=== PATIENT | male | born 1955 | race Caucasian/White ===

== ENCOUNTER 2020-03-01 12:32 | Outpatient (CLI) | payer OTHER ==
[~2020-03-01] VITALS: Ht 175.3 cm; Wt 79.4 kg
--- NOTE | 2020-03-01 12:15 | NUR ---
AIDAN MURRAY aware of pt creatinine of 1.4 ok to continue with CTA
[~2020-03-01 12:32] MED LIST: IV NS 0.9% 500 ML IV PRN; METOPROLOL TARTRATE INJ 5 MG/5 ML AMPUL IVP PRN; NITROGLYCERIN 4.9 GM SPRAY SL PRN
[2020-03-01] MEDS ORDERED: IOHEXOL-350 100 ML VIAL IV ONE (12:51)
[2020-03-01] MEDS ORDERED: CT SWABBABLE VALVE TRANS SET 1 EA INFUS.SET MC ONE (12:51)
[2020-03-01] MEDS ORDERED: IV NS 0.9% 250 ML IV ONE (12:51)
--- NOTE | 2020-03-01 13:07 | NUR ---
RN NOTES Post CTA pt tolerated the procedure, no noted respiratory distress, v/s stable, kept rested and comfortable. private ambulance on stand by for pt transport back to [facility].
== END 2020-03-01 23:59 | disposition home or self-care (01) ==
LOC: CT 12:32
PROVIDERS: ATTEND Internal Medicine Interventional Cardiology
DX: M47.814 Spondylosis without myelopathy or radiculopathy, thoracic region (principal); R07.9 Chest pain, unspecified
CPT/HCPCS: 75574; J7050; Q9967